=== PATIENT | male | born 1980 | race Caucasian/White ===

== ENCOUNTER 2017-09-14 20:27 | Inpatient (IN) | payer BC ==
[2017-09-14] MEDS ORDERED: Heparin Sodium 5,000 Units/ML Vial IVPUSH ONE (21:18)
[2017-09-14] MEDS ORDERED: Iopamidol 755 Mg/ML 100 ML Bottle IVPUSH ONE (21:20)
[2017-09-14 21:21] LABS: CHLORIDE,CL 103 mmol/L (101-111); SODIUM,NA 139 mmol/L (135-145)
[2017-09-14] MEDS ORDERED: Heparin Sodium/D5W 500 ML ONE (21:30)
[2017-09-14] MEDS ORDERED: Heparin Sodium/D5W 25,000 UNITS/500 ML BAG IV SCH (21:30)
--- NOTE | 2017-09-14 22:06 | EDM.PDOC ---
ED HPI GENERAL MEDICAL PROBLEM - General Chief Complaint: Chest Pain Stated Complaint: CHEST SOB AND LEG PAIN Time Seen by Provider: 09/14/17 20:30 Source of Information: Reports: Patient History Limitations: Reports: No Limitations - History of Present Illness INITIAL COMMENTS - FREE TEXT/NARRATIVE: ED with complaint of right leg pain for one week, increasing chest pain over past since Monday, minimal cough, feeling wheezy, No hx asthma, No fever. Decrease in activity tolerance. Has been traveling since Monday in car and by airplane. Family hx positive for blood clots. Right Lower Leg Pain Score (Numeric/FACES): 3 Middle Chest Pain Score (Numeric/FACES): 7 - Related Data Allergies Allergy/AdvReac Type Severity Reaction Status Date / Time No Known Allergies Allergy Verified 09/15/17 00:08 Home Meds: Home Meds . [No Known Home Meds] 09/14/17 [History] ED ROS GENERAL - Review of Systems Review Of Systems: See Below Constitutional: Reports: Fatigue HEENT: Reports: No Symptoms Respiratory: Reports: Shortness of Breath, Wheezing, Pleuritic Chest Pain, Cough. Denies: Hemoptysis Cardiovascular: Reports: Chest Pain, Dyspnea on Exertion, Orthopnea. Denies: Lightheadedness GI/Abdominal: Reports: No Symptoms Musculoskeletal: Reports: Leg Pain Skin: Reports: No Symptoms Neurological: Reports: No Symptoms ED EXAM, GENERAL - Physical Exam Exam: See Below Exam Limited By: No Limitations General Appearance: Alert, No Apparent Distress, Anxious Eye Exam: Bilateral Eye: EOMI Ears: Normal External Exam, Normal Canal Ear Exam: Bilateral Ear: Auricle Normal, Canal Normal, TM normal Nose: Normal Inspection Throat/Mouth: Normal Inspection Head: Atraumatic, Normocephalic Neck: Normal Inspection Respiratory/Chest: Normal Breath Sounds Cardiovascular: Normal Peripheral Pulses, Regular Rate, Rhythm GI/Abdominal: Normal Bowel Sounds, Soft Back Exam: Normal Inspection, Full Range of Motion Extremities: Normal Inspection, Normal Range of Motion, Samira's Sign (right), Leg Pain (right calf) Neurological: Alert, Oriented, Normal Cognition Psychiatric: Normal Affect, Normal Mood Skin Exam: Warm, Dry, Intact, Normal Color Course - Vital Signs Last Recorded V/S: Last Vital Signs Temp 97.7 F 09/14/17 22:53 Pulse 78 09/14/17 22:53 Resp 20 09/14/17 22:53 BP 150/91 H 09/14/17 22:53 Pulse Ox 100 09/14/17 22:53 - Orders/Labs/Meds Orders: Active Orders 24 hr Category Date Time Status Heparin Sodium/D5W [Heparin 25,000 Units in D5W 500 ML] Med 09/14/17 21:30 Active 25,000 units in 500 ml IV TITRATE Medication Orders Heparin Sodium/Dextrose (Heparin 25,000 Units In D5w 500 Ml) 25,000 units in 500 mls @ 32.658 mls/hr IV TITRATE JULIO; 18 UNITS/KG/HR PRN Reason: Protocol Last Admin: 09/14/17 21:53 Dose: 18 units/kg/hr, 32.658 mls/hr Sodium Chloride (Normal Saline) 1,000 mls @ 75 mls/hr IV ASDIRECTED JULIO Ondansetron HCl (Zofran) 4 mg IVPUSH Q6H PRN PRN Reason: Nausea/Vomiting Labs: Laboratory Tests 09/14/17 09/14/17 09/14/17 Range/Units 20:40 20:40 20:40 WBC 10.7 H (5.0-10.0) 10^3/uL RBC 5.62 (4.6-6.2) 10^6/uL Hgb 16.8 (14.0-18.0) g/dL Hct 47.8 (40.0-54.0) % MCV 85.1 (80-100) fL MCH 29.9 (27.0-34.0) pg MCHC 35.1 H (33.0-35.0) g/dL Plt Count 207 (150-450) 10^3/uL Neut % (Auto) 68.6 (42.2-75.2) % Lymph % (Auto) 22.9 (20.5-50.1) % [place] % (Auto) 6.1 (2-8) % Eos % (Auto) 2.2 (1.0-3.0) % Baso % (Auto) 0.2 (0.0-1.0) % PT 10.4 (9.0-12.0) SEC INR 1.0 (0.9-1.2) D-Dimer, Quantitative 2680 H (0-400) ng/mL Sodium 139 (135-145) mmol/L Potassium 3.6 (3.6-5.0) mmol/L Chloride 103 (101-111) mmol/L Carbon Dioxide 27.0 (21.0-31.0) mmol/L Anion Gap 12.6 BUN 13 (7-18) mg/dL Creatinine 0.9 (0.6-1.3) mg/dL Est Cr Clr Drug Dosing 118.29 mL/min Estimated GFR (MDRD) > 60 BUN/Creatinine Ratio 14.44 Glucose 115 H (74-105) mg/dL Calcium 9.2 (8.4-10.2) mg/dl Total Bilirubin 0.8 (0.2-1.0) mg/dL AST 34 (10-42) IU/L ALT 51 (10-60) IU/L Alkaline Phosphatase 101 (42-121) IU/L Troponin I < 0.02 (0.00-0.02) ng/ml Total Protein 7.2 (6.7-8.2) g/dl Albumin 4.4 (3.2-5.5) g/dl Globulin 2.8 Albumin/Globulin Ratio 1.57 Meds: Medications Generic Name Dose Route Start Last Admin Trade Name Freq PRN Reason Stop Dose Admin Heparin Sodium/Dextrose 25,000 units in 500 mls @ 32.658 mls/hr 09/14/17 21: 30 09/14/17 21:53 Heparin 25,000 Units In D5w 500 Ml IV 18 units/kg/hr TITRATE [facility] 32.658 mls/hr Protocol Administration 18 UNITS/KG/HR Sodium Chloride 1,000 mls @ 75 mls/hr 09/14/17 22:45 Normal Saline IV ASDIRECTED [facility] Ondansetron HCl 4 mg 09/14/17 22:32 Zofran IVPUSH Q6H PRN Nausea/Vomiting Discontinued Medications Generic Name Dose Route Start Last Admin Trade Name Freq PRN Reason Stop Dose Admin Heparin Sodium (Porcine) 5,000 units 09/14/17 21:18 09/14/17 21:51 Heparin Sodium IVPUSH 09/14/17 21:19 5,000 units ONETIME ONE Administration Heparin Sodium/Dextrose Confirm 09/14/17 21:30 09/14/17 21:37 Heparin 25,000 Units In D5w 500 Ml Administered 09/14/17 21:31 Not Given Dose 500 mls @ as directed .ROUTE .STK-MED ONE Iopamidol 100 ml 09/14/17 21:20 09/14/17 21:30 Isovue-370 (76%) IVPUSH 09/14/17 21:21 100 ml ONETIME ONE Administration - Radiology Interpretation Free Text/Narrative:: CXR negative CT angio chest Thrombus in right main pulmonary artery as well as segmental branches to the right upper and right lower lobes, as well as segmental and subsegmental branches to the left lower lobe - Re-Assessments/Exams Free Text/Narrative Re-Assessment/Exam: 09/14/17 22:08 Wells Criteria Scoring 7.5. CT angio results pending, Heparin infusing 09/14/17 22:28 Dr Fuchs accepting of patient for admission Departure - Departure Time of Disposition: 22:27 Disposition: Admitted As Inpatient 68 Condition: Good Clinical Impression: Pulmonary embolism Qualifiers: Pulmonary embolism type: other Chronicity: acute Acute cor pulmonale presence: without acute cor pulmonale Qualified Code(s): I26.99 - Other pulmonary embolism without acute cor pulmonale - Discharge Information - My Orders Last 24 Hours: My Active Orders 09/14/17 21:30 Heparin Sodium/D5W [Heparin 25,000 Units in D5W 500 ML] 25,000 units in 500 ml IV TITRATE - Assessment/Plan Last 24 Hours: My Active Orders 09/14/17 21:30 Heparin Sodium/D5W [Heparin 25,000 Units in D5W 500 ML] 25,000 units in 500 ml IV TITRATE
[2017-09-14] MEDS ORDERED: Ondansetron 4 MG/2 ML SDV IVPUSH PRN (22:32)
[2017-09-14] MEDS ORDERED: Sodium Chloride 0.9% 1,000 ML IV SCH (22:45)
--- NOTE | 2017-09-15 11:12 | PCM.HP ---
H&P History of Present Illness - General Date of Service: 09/14/17 Admit Problem/Dx: Admission Diagnosis/Problem Admission Diagnosis/Problem Shortness of breath at rest Source of Information: Patient History Limitations: Reports: No Limitations - History of Present Illness Initial Comments - Free Text/Narative: The patient presented with complaint of right leg pain that has been going on for one week. Gradually worsened and he developed associated shortness of breath.Also started having chest pain at the retrosternal area. The patient denies fever chills, nausea or vomiting. The patient's sister has a history of protein S deficiency and has had blood clots. Patient's mother also has had blood clots. Patient was on a long distance travel. However he started having pain of the right lower extremity before the trip Onset of Symptoms: Reports: Other (one week) Duration of Symptoms: Reports: Getting Worse Quality: Reports: Burning Worsens with: Reports: Movement Associated Symptoms: Reports: Chest Pain, Shortness of Breath Right Lower Leg Pain Score (Numeric/FACES): 1 Middle Chest Pain Score (Numeric/FACES): 7 - Related Data Allergies/Adverse Reactions: Allergies Allergy/AdvReac Type Severity Reaction Status Date / Time No Known Allergies Allergy Verified 09/15/17 00:08 Home Medications: Home Meds . [No Known Home Meds] 09/14/17 [History] Past Medical History - Past Health History Medical/Surgical History: Denies Medical/Surgical History - Infectious Disease History Infectious Disease History: Reports: Chicken Pox, Other (See Below) Other Infectious Disease History: Kriptosparitiam(not sure spelling correct and pt does not know how to spell) Social & Family History - Family History Cardiac: Reports: Heart Failure Respiratory: Reports: Interstitial Lung Disease, PE, Other (See Below) Other Respiratory Family Hisory: in legs, both mother, brother and sister GI: Reports: Cholelithiasis Oncologic: Reports: None - Tobacco Use Smoking Status *Q: Never Smoker Second Hand Smoke Exposure: No - Caffeine Use Caffeine Use: Reports: Soda - Recreational Drug Use Recreational Drug Use: No H&P Review of Systems - Review of Systems: Review Of Systems: See Below General: Reports: No Symptoms HEENT: Reports: No Symptoms Pulmonary: Reports: No Symptoms, Shortness of Breath, Wheezing Gastrointestinal: Reports: No Symptoms Genitourinary: Reports: No Symptoms Musculoskeletal: Reports: No Symptoms Skin: Reports: No Symptoms Psychiatric: Reports: No Symptoms Hematologic/Lymphatic: Reports: No Symptoms Exam - Exam Exam: See Below - Vital Signs Vital Signs: Last Vital Signs Temp 37.1 C 09/15/17 07:00 Pulse 66 09/15/17 07:00 Resp 14 09/15/17 07:00 BP 112/62 09/15/17 07:00 Pulse Ox 96 09/15/17 07:00 Weight: 91.263 kg - Exam General: Alert, Oriented, 4 HEENT: PERRLA, Hearing Intact, Mucosa Moist & [place], Nares Patent, Normal Nasal Septum, Posterior Pharynx Clear, Conjunctiva Clear, EOMI, EACs Clear, TMs Clear Lungs: Clear to Auscultation, Normal Respiratory Effort Cardiovascular: Regular Rate, Regular Rhythm GI/Abdominal Exam: Normal Bowel Sounds, Soft, Non-Tender, No Organomegaly, No Distention, No Abnormal Bruit, No Mass, Pelvis Stable Back Exam: Normal Inspection, Full Range of Motion, NT Extremities: Leg Pain Neuro Extensive - Motor, Sensory, Reflexes: CN II-XII Intact, Normal Gait, Normal Reflexes Psychiatric: Alert, Normal Affect - Patient Data Lab Results Last 24 hrs: Laboratory Results - last 24 hr 09/15/17 09/15/17 Range/Units 03:55 10:03 APTT 65.0 H 80.4 H (22.0-34.0) SEC Result Diagrams: 09/14/17 20:40 09/14/17 20:40 *Q Meaningful Use (ADM) - VTE *Q VTE Criteria *Q: - Stroke *Q Stroke Criteria *Q: - AMI *Q AMI Criteria *Q: Problem List Initiated/Reviewed/Updated: Yes Orders Last 24hrs: Active Orders 24 hr Category Date Time Status Venous Doppler Lwr Ext Bi [US] Routine Exams 09/15/17 10:21 Ordered Enoxaparin [Lovenox] Med 09/15/17 13:00 Ordered 100 mg SUBCUT Q12HR Warfarin Pharmacy to Dose [Pharmacy to Dose - Warfarin] Med 09/15/17 10:45 Ordered 1 dose .XX ASDIRECTED Medication Orders Enoxaparin Sodium (Lovenox) 100 mg SUBCUT Q12HR JULIO Sodium Chloride (Normal Saline) 1,000 mls @ 75 mls/hr IV ASDIRECTED JULIO Last Admin: 09/15/17 04:51 Dose: 75 mls/hr Ondansetron HCl (Zofran) 4 mg IVPUSH Q6H PRN PRN Reason: Nausea/Vomiting Warfarin Sodium (Pharmacy To Dose - Warfarin) 1 dose .XX ASDIRECTED [facility] Assessment/Plan Comment:: #. Acute pulmonary embolism CT scan of the chest showed bilateral pulmonary embolism. Patient has clot in the right pulmonary artery also #. Right lower extremity pain Patient likely has DVT of the right lower extremity. The patient him back on a long distance travel area has a family history of protein S deficiency #. Chest pain This is as a result of acute pulmonary embolism Plan: Admit patient to medical floor Start patient on continuous intravenous heparin weight-based protocol Monitor PTT Supplemental oxygen Obtain echocardiogram We'll obtain ultrasound of right lower extremity Discussed with the emergency room physician it administrative assistant
--- NOTE | 2017-09-15 11:21 | PCM.PN ---
- General Info Date of Service: 09/15/17 Subjective Update: Patient was admitted with acute pulmonary embolism Complains of pain right lower extremity Does have some shortness of breath - Review of Systems General: Reports: No Symptoms Pulmonary: Reports: Shortness of Breath Cardiovascular: Reports: No Symptoms Gastrointestinal: Reports: No Symptoms Musculoskeletal: Reports: Leg Pain - Patient Data Vitals - Most Recent: Last Vital Signs Temp 36.4 C 09/15/17 11:00 Pulse 82 09/15/17 11:00 Resp 14 09/15/17 07:00 BP 148/80 H 09/15/17 11:00 Pulse Ox 95 09/15/17 11:00 Weight - Most Recent: 91.263 kg I&O - Last 24 Hours: Intake & Output 09/14/17 09/15/17 09/15/17 22:59 06:59 14:59 Intake Total 228 125 Output Total 400 400 Balance -172 -275 Lab Results Last 24 Hours: Laboratory Results - last 24 hr 09/15/17 09/15/17 Range/Units 03:55 10:03 APTT 65.0 H 80.4 H (22.0-34.0) SEC Med Orders - Current: Current Medications Enoxaparin Sodium (Lovenox) 100 mg SUBCUT Q12HR JULIO Sodium Chloride (Normal Saline) 1,000 mls @ 75 mls/hr IV ASDIRECTED JULIO Last Admin: 09/15/17 04:51 Dose: 75 mls/hr Ondansetron HCl (Zofran) 4 mg IVPUSH Q6H PRN PRN Reason: Nausea/Vomiting Warfarin Sodium (Pharmacy To Dose - Warfarin) 1 dose .XX ASDIRECTED JULIO Discontinued Medications Heparin Sodium (Porcine) (Heparin Sodium) 5,000 units IVPUSH ONETIME ONE Stop: 09/14/17 21:19 Last Admin: 09/14/17 21:51 Dose: 5,000 units Heparin Sodium/Dextrose (Heparin 25,000 Units In D5w 500 Ml) 25,000 units in 500 mls @ 32.658 mls/hr IV TITRATE JULIO; 18 UNITS/KG/HR PRN Reason: Protocol Last Titration: 09/15/17 10:35 Dose: 16 units/kg/hr, 29.03 mls/hr Heparin Sodium/Dextrose (Heparin 25,000 Units In D5w 500 Ml) Confirm Administered Dose 500 mls @ as directed .ROUTE .STK-MED ONE Stop: 09/14/17 21:31 Last Admin: 09/14/17 21:37 Dose: Not Given Iopamidol (Isovue-370 (76%)) 100 ml IVPUSH ONETIME ONE Stop: 09/14/17 21:21 Last Admin: 09/14/17 21:30 Dose: 100 ml - Exam General: Alert, Cooperative, No Acute Distress Lungs: Clear to Auscultation Cardiovascular: Regular Rate GI/Abdominal Exam: Normal Bowel Sounds, Soft Extremities: Leg Pain - Problem List Review Problem List Initiated/Reviewed/Updated: Yes - My Orders Last 24 Hours: My Active Orders 09/15/17 10:21 Venous Doppler Lwr Ext Bi [US] Routine 09/15/17 10:45 Warfarin Pharmacy to Dose [Pharmacy to Dose - Warfarin] 1 dose .XX ASDIRECTED 09/15/17 13:00 Enoxaparin [Lovenox] 100 mg SUBCUT Q12HR - Plan Plan:: #. Acute pulmonary embolism CT scan of the chest showed bilateral pulmonary embolism. Patient has clot in the right pulmonary artery also #. Right lower extremity pain Patient likely has DVT of the right lower extremity. The patient him back on a long distance travel area has a family history of protein S deficiency #. Chest pain This is as a result of acute pulmonary embolism Plan: Discontinue continuous intravenous heparin Start patient on Lovenox 100 mg every 12 hours Start patient on Coumadin Monitor PT and INR Obtain ultrasound of the lower extremities Obtain echocardiogram
[2017-09-15] MEDS ORDERED: Morphine 2 MG/ML Syringe IVPUSH ONE (12:44)
[2017-09-15] MEDS ORDERED: Enoxaparin 100 MG/1 ML Syringe SUBCUT SCH (13:00)
[2017-09-15] MEDS ORDERED: Morphine 2 MG/ML Syringe IVPUSH PRN (13:37)
[2017-09-15] MEDS ORDERED: Warfarin 5 MG Tab PO ONE (14:00)
--- NOTE | 2017-09-15 15:31 | US ---
Clinical history: 37-year-old male "pulmonary embolism". Rule out occult lower extremity DVT. Interpretation: Negative exam. No sign of intraluminal echogenic thrombus and normal compressibility deep veins both groin, thigh, k nee and calves. Spontaneous flow in the posterior tibial and anterior tibial veins both lower extremi ties. Augmented flow in the popliteal vein behind the knees and femoral veins both thighs. No Gomez's cyst. CONCLUSION: No current sonographic evidence deep vein thrombosis either lower extremity i.e. negative exam.
[2017-09-15] MEDS: Enoxaparin 100 MG/1 ML Syringe SUBCUT SCH (17:01)
[2017-09-15] MEDS ORDERED: Acetaminophen 325 MG Tab PO PRN (17:52)
--- NOTE | 2017-09-15 20:00 | EKG ---
09/15/2017 - LYNN VINCENT - TIME: 2022. EKG shows normal sinus rhythm with a rate of 74 per minute. Nonspecific T-wave abnormalities. [facility] /[id number]
[2017-09-16] MEDS: Enoxaparin 100 MG/1 ML Syringe SUBCUT SCH (05:48)
--- NOTE | 2017-09-16 09:42 | PCM.DCSUM1 ---
Discharge Summary - Hospital Course Free Text/Narrative:: The patient presented with complaint of chest pain and shortness of breath which was going on for one week. He had a CT scan of the chest which showed bilateral pulmonary embolism. There were clots in the right pulmonary artery. We proceeded to obtain ultrasound of the extremities there was no evidence of clots. Patient's sister has history of protein S deficiency. The patient should be tested as outpatient for hypercoagulable conditions. The test should be done includes protein C and S deficiency as a, factor V Leiden deficiency, prothrombin complex, lupus anticoagulant ect The patient has been started on subcutaneous Lovenox and Coumadin. He will have PT and INR checked in 3 days I will follow up with primary care provider in one week #. Acute pulmonary embolism CT scan of the chest showed bilateral pulmonary embolism. Patient has clot in the right pulmonary artery also #. Right lower extremity pain Patient likely has DVT of the right lower extremity. The patient him back on a long distance travel area has a family history of protein S deficiency #. Chest pain This is as a result of acute pulmonary embolism - Discharge Data Discharge Date: 09/16/17 Discharge Disposition: Home, Self-Care 01 Condition: Stable - Patient Instructions Diet: Regular Diet as Tolerated Activity: As Tolerated Driving: May Drive Today Showering/Bathing: October Shower - Discharge Plan Prescriptions/Med Rec: Enoxaparin [Lovenox] 100 mg SUBCUT Q12H 5 Days #10 syringe Warfarin Sodium [Coumadin] 6 mg PO DAILY #20 tablet Home Medications: Home Meds Acetaminophen [Tylenol] 650 mg PO Q6H PRN tablet 09/16/17 [Rx] Enoxaparin [Lovenox] 100 mg SUBCUT Q12H 5 Days #10 syringe 09/16/17 [Rx] Warfarin Sodium [Coumadin] 6 mg PO DAILY #20 tablet 09/16/17 [Rx] Patient Handouts: What You Need to Know About Warfarin, Vascular Ultrasound, Enoxaparin injection Referrals: PCP,Unobtain [Ordering Only Provider] - - General Info Admission Dx/Problem (Free Text: Admission Diagnosis/Problem Admission Diagnosis/Problem Shortness of breath at rest - Review of Systems General: Reports: No Symptoms Pulmonary: Reports: Shortness of Breath Cardiovascular: Reports: No Symptoms Gastrointestinal: Reports: No Symptoms Genitourinary: Reports: No Symptoms Skin: Reports: No Symptoms - Patient Data Vitals - Most Recent: Last Vital Signs Temp 36.7 C 09/16/17 07:00 Pulse 69 09/16/17 07:00 Resp 18 09/16/17 07:00 BP 115/65 09/16/17 07:00 Pulse Ox 95 09/16/17 07:00 Weight - Most Recent: 91.263 kg I&O - Last 24 hours: Intake & Output 09/15/17 09/16/17 09/16/17 22:59 06:59 14:59 Intake Total 920 400 Output Total 500 900 Balance 420 -500 Lab Results - Last 24 hrs: Laboratory Results - last 24 hr 09/15/17 09/15/17 Range/Units 10:03 13:00 APTT 80.4 H (22.0-34.0) SEC Troponin I < 0.02 (0.00-0.02) ng/ml Med Orders - Current: Current Medications Acetaminophen (Tylenol) 650 mg PO Q6H PRN PRN Reason: Pain Last Admin: 09/15/17 18:12 Dose: 650 mg Enoxaparin Sodium (Lovenox) 100 mg SUBCUT Q12H JULIO Last Admin: 09/16/17 05:48 Dose: 100 mg Morphine Sulfate (Morphine) 2 mg IVPUSH Q4H PRN PRN Reason: Pain Ondansetron HCl (Zofran) 4 mg IVPUSH Q6H PRN PRN Reason: Nausea/Vomiting Warfarin Sodium (Pharmacy To Dose - Warfarin) 1 dose .XX ASDIRECTED JULIO Discontinued Medications Heparin Sodium (Porcine) (Heparin Sodium) 5,000 units IVPUSH ONETIME ONE Stop: 09/14/17 21:19 Last Admin: 09/14/17 21:51 Dose: 5,000 units Heparin Sodium/Dextrose (Heparin 25,000 Units In D5w 500 Ml) 25,000 units in 500 mls @ 32.658 mls/hr IV TITRATE JULIO; 18 UNITS/KG/HR PRN Reason: Protocol Last Titration: 09/15/17 10:35 Dose: 16 units/kg/hr, 29.03 mls/hr Heparin Sodium/Dextrose (Heparin 25,000 Units In D5w 500 Ml) Confirm Administered Dose 500 mls @ as directed .ROUTE .STK-MED ONE Stop: 09/14/17 21:31 Last Admin: 09/14/17 21:37 Dose: Not Given Sodium Chloride (Normal Saline) 1,000 mls @ 75 mls/hr IV ASDIRECTED JULIO Last Admin: 09/15/17 04:51 Dose: 75 mls/hr Iopamidol (Isovue-370 (76%)) 100 ml IVPUSH ONETIME ONE Stop: 09/14/17 21:21 Last Admin: 09/14/17 21:30 Dose: 100 ml Morphine Sulfate (Morphine) 2 mg IVPUSH ONETIME ONE Stop: 09/15/17 12:45 Last Admin: 09/15/17 12:49 Dose: 2 mg Warfarin Sodium (Coumadin) 10 mg PO ONETIME ONE Stop: 09/15/17 14:01 Last Admin: 09/15/17 13:54 Dose: 10 mg *Q Meaningful Use (DIS) - VTE *Q VTE Criteria *Q: - Stroke *Q Stroke Criteria *Q: - AMI *Q AMI Criteria *Q:
[2017-09-16] MEDS ORDERED: Warfarin 5 MG Tab PO ONE (11:15)
== END 2017-09-16 13:00 | disposition home or self-care (01) | DRG 134 ==
LOC: DL.ED 20:27 → DL.MS 22:32
PROVIDERS: ADMIT Hospitalist; ATTEND Hospitalist
DX: I26.99 Other pulmonary embolism without acute cor pulmonale (principal); I82.401 Acute embolism and thrombosis of unspecified deep veins of right lower extremity
CPT/HCPCS: 36415; 71046; 71260; 80053; 84484; 85025; 85379; 85610; 85730; 93005; 93970; 96365; 96375; 99285; A9270-GY; J1644; J1650; J2270; J7030; Q9967

== ENCOUNTER 2017-09-20 07:10 | Emergency (ER) | payer BC ==
[2017-09-20] MEDS ORDERED: Morphine 2 MG/ML Syringe IVPUSH ONE ×2 (07:23→08:29)
--- NOTE | 2017-09-20 07:27 | EDM.PDOC ---
ED HPI GENERAL MEDICAL PROBLEM - General Stated Complaint: [id number] BLOOD CLOT IN LUNG CHEST PAIN Time Seen by Provider: 09/20/17 07:20 Source of Information: Reports: Patient, Old Records, RN, RN Notes Reviewed History Limitations: Reports: No Limitations - History of Present Illness INITIAL COMMENTS - FREE TEXT/NARRATIVE: Toby is a 37 yo male who presents to the ED due to shortness of breath. He relates that he was diagnosed with a PE and was discharged last . He relates that he started experiencing shortness of breath on 09/09/17 after he he returned from vacation in which he was in the car for a prolonged period of time. He relates that 15 minutes ago he woke up with severe pain to the left side of his chest, increased shortness of breath, nausea, and diaphoresis. He describes the pain as sharp stabbing pain to his left chest. Denies radiation. He reports that he has continued his blood thinners since hospital discharge including lovenox and Coumadin. He has a family hx of clotting disorders. Denies fever or abd pain. Onset: Today Onset Time: 07:00 Duration: Minutes: Location: Reports: Chest Quality: Reports: Sharp, Stabbing Severity: Severe Improves with: Reports: Medication Worsens with: Reports: Movement Associated Symptoms: Reports: Chest Pain, Shortness of Breath Left Upper Chest Pain Score (Numeric/FACES): 10 - Related Data Allergies Allergy/AdvReac Type Severity Reaction Status Date / Time No Known Allergies Allergy Verified 09/15/17 00:08 Home Meds: Home Meds Acetaminophen [Tylenol] 650 mg PO Q6H PRN tablet 09/16/17 [Rx] Enoxaparin [Lovenox] 100 mg SUBCUT Q12H 5 Days #10 syringe 09/16/17 [Rx] Warfarin Sodium [Coumadin] 6 mg PO DAILY #20 tablet 09/16/17 [Rx] Past Medical History - Past Health History Medical/Surgical History: Denies Medical/Surgical History - Infectious Disease History Infectious Disease History: Reports: Chicken Pox, Other (See Below) Other Infectious Disease History: Kriptosparitiam(not sure spelling correct and pt does not know how to spell) Social & Family History - Family History Cardiac: Reports: Heart Failure Respiratory: Reports: Interstitial Lung Disease, PE, Other (See Below) Other Respiratory Family Hisory: in legs, both mother, brother and sister GI: Reports: Cholelithiasis Oncologic: Reports: None - Tobacco Use Smoking Status *Q: Never Smoker Second Hand Smoke Exposure: No - Caffeine Use Caffeine Use: Reports: Soda - Recreational Drug Use Recreational Drug Use: No ED ROS GENERAL - Review of Systems Review Of Systems: ROS reveals no pertinent complaints other than HPI. ED EXAM, GENERAL - Physical Exam Exam: See Below Exam Limited By: No Limitations General Appearance: Alert, Severe Distress (He appears to be having significant pain on assessment. Unable to get comfortable on the cart due to pain and shortness of breath) Eye Exam: Bilateral Eye: PERRL Ears: Normal External Exam, Normal Canal, Hearing Grossly Normal, Normal TMs Ear Exam: Bilateral Ear: Auricle Normal, Canal Normal, TM normal Nose: Normal Inspection, Normal Mucosa, No Blood Throat/Mouth: Normal Inspection, Normal Lips, Normal Teeth, Normal Gums, Normal Oropharynx, Normal Voice, No Airway Compromise Head: Atraumatic, Normocephalic Neck: Normal Inspection, Supple, Non-Tender, Full Range of Motion Respiratory/Chest: Lungs Clear, No Accessory Muscle Use, Decreased Breath Sounds , Other (Patient reports pain to left side of chest.) Cardiovascular: Normal Peripheral Pulses, Regular Rate, Rhythm, No Edema, No Gallop, No JVD, No Murmur, No Rub GI/Abdominal: Normal Bowel Sounds, Soft, Non-Tender, No Organomegaly, No Distention, No Abnormal Bruit, No Mass (Male) Exam: Deferred Rectal (Males) Exam: Deferred Back Exam: Normal Inspection, Full Range of Motion, NT Extremities: Normal Inspection, Normal Range of Motion, Non-Tender, Normal Capillary Refill, No Pedal Edema Neurological: Alert, Oriented, CN II-XII Intact, Normal Cognition, Normal Gait, Normal Reflexes, No Motor/Sensory Deficits Psychiatric: Normal Affect, Normal Mood Skin Exam: Warm, Intact, Normal Color, No Rash, Diaphoretic Lymphatic: No Adenopathy EKG INTERPRETATION EKG Date: 09/20/17 Time: 07:18 Rhythm: NSR [place]: Normal P-Wave: Present QRS: Normal ST-T: Normal QT: Normal Comparison: No Change Course - Vital Signs Last Recorded V/S: Last Vital Signs Temp 98.8 F 09/20/17 07:31 Pulse 74 09/20/17 07:50 Resp 20 09/20/17 07:50 BP 124/88 09/20/17 07:50 Pulse Ox 98 09/20/17 07:50 - Orders/Labs/Meds Orders: Active Orders 24 hr Category Date Time Status EKG Documentation Completion [RC] URGENT Care 09/20/17 07:16 Active Chest w Cont [CT] Urgent Exams 09/20/17 07:59 Taken Labs: Laboratory Tests 09/20/17 09/20/17 09/20/17 Range/Units 07:29 07:29 07:29 WBC 8.8 (5.0-10.0) 10^3/uL RBC 5.67 (4.6-6.2) 10^6/uL Hgb 16.9 (14.0-18.0) g/dL Hct 48.6 (40.0-54.0) % MCV 85.7 (80-100) fL MCH 29.8 (27.0-34.0) pg MCHC 34.8 (33.0-35.0) g/dL Plt Count 268 (150-450) 10^3/uL Neut % (Auto) 64.2 (42.2-75.2) % Lymph % (Auto) 21.9 (20.5-50.1) % [place] % (Auto) 10.3 H (2-8) % Eos % (Auto) 3.1 H (1.0-3.0) % Baso % (Auto) 0.5 (0.0-1.0) % PT 17.3 H D (9.0-12.0) SEC INR 1.7 H (0.9-1.2) D-Dimer, Quantitative 1460 H (0-400) ng/mL Sodium 138 (135-145) mmol/L Potassium 4.1 (3.6-5.0) mmol/L Chloride 100 L (101-111) mmol/L Carbon Dioxide 28.0 (21.0-31.0) mmol/L Anion Gap 14.1 BUN 12 (7-18) mg/dL Creatinine 1.0 (0.6-1.3) mg/dL Est Cr Clr Drug Dosing 106.46 mL/min Estimated GFR (MDRD) > 60 BUN/Creatinine Ratio 12.00 Glucose 108 H (74-105) mg/dL Calcium 9.3 (8.4-10.2) mg/dl Total Bilirubin 0.9 (0.2-1.0) mg/dL AST 73 H (10-42) IU/L ALT 216 H (10-60) IU/L Alkaline Phosphatase 179 H (42-121) IU/L Troponin I < 0.02 (0.00-0.02) ng/ml Total Protein 7.9 (6.7-8.2) g/dl Albumin 4.3 (3.2-5.5) g/dl Globulin 3.6 Albumin/Globulin Ratio 1.19 Meds: Medications Discontinued Medications Generic Name Dose Route Start Last Admin Trade Name Freq PRN Reason Stop Dose Admin Enoxaparin Sodium 100 mg 09/20/17 09:13 Lovenox SUBCUT 09/20/17 09:14 ONETIME ONE Iopamidol 100 ml 09/20/17 07:59 09/20/17 08:34 Isovue-370 (76%) IVPUSH 09/20/17 08:00 75 ml ONETIME ONE Administration Morphine Sulfate 2 mg 09/20/17 07:23 09/20/17 07:29 Morphine IVPUSH 09/20/17 07:24 2 mg ONETIME ONE Administration Morphine Sulfate 2 mg 09/20/17 08:29 09/20/17 08:33 Morphine IVPUSH 09/20/17 08:30 2 mg ONETIME ONE Administration Ondansetron HCl 4 mg 09/20/17 07:34 09/20/17 07:40 Zofran IV 09/20/17 07:35 4 mg ONETIME ONE Administration Departure - Departure Time of Disposition: 09:15 Disposition: DC/Tfer to Acute Hospital 02 Clinical Impression: Pulmonary embolism Qualifiers: Pulmonary embolism type: other Chronicity: acute Acute cor pulmonale presence: without acute cor pulmonale Qualified Code(s): I26.99 - Other pulmonary embolism without acute cor pulmonale - Discharge Information Forms: Interfacility Transfer EMTALA
[2017-09-20] MEDS ORDERED: Ondansetron 4 MG/2 ML SDV IV ONE (07:34)
[2017-09-20 07:52] LABS: CHLORIDE,CL 100 mmol/L (101-111); SODIUM,NA 138 mmol/L (135-145)
[2017-09-20] MEDS ORDERED: Iopamidol 755 Mg/ML 100 ML Bottle IVPUSH ONE (07:59)
[2017-09-20] MEDS ORDERED: Enoxaparin 100 MG/1 ML Syringe SUBCUT ONE (09:13)
--- NOTE | 2017-09-20 11:35 | CT ---
CLINICAL HISTORY: 37-year-old 206 pound male with severe substernal chest pain, left of midline, and abnormally elevated serum D dimer (1460) who, significantly, was reported one week ago to have "exten sive, bilateral pulmonary artery thrombosis (PE)" that was subsequently treated with heparin, Lovenox and now Coumadin. Reevaluate please. SCAN TECHNIQUE: Volume acquisition of data from an emergency unenhanced CT scan of the chest (bony th orax, lungs and mediastinum) obtained while this patient was lying supine on the Siemens multislice C T scanner [place], [place]. All data archived in the PAC system for st orage, reformatting axial/sagittal/coronal planes and study. INTERPRETATION: Abnormal. 1. Interval resolution, i.e., clearing of the extensive intraluminal thrombosis causing filling defec ts in the pulmonary artery circulation of both lungs demonstrated on the [address] exam. 2. *Patchy round new peripheral pleural-based infiltrates or infarcts anterior segment RLL and lingul ar segment KRISTIN today. 3. *Bibasilar accumulation small dependent new subpulmonic pleural effusions (R>L). Underlying atelec tasis posteriorly RLL. 4. Normal cardiac silhouette. No pericardial effusion, cephalization of flow or signs of alveolar katelyn ma. 5. No parenchymal lung mass lesion or hilar/mediastinal lymphadenopathy. No lobar pneumonia. 6. Normal caliber thoracic aorta without sign of aneurysm or dissection. Normal dorsal spine.
--- NOTE | 2017-09-20 16:15 | EKG ---
09/20/2017 - LYNN VINCENT - TIME: 07:18 a.m. EKG shows normal sinus rhythm, rate of 72 per minute. Nonspecific T-wave abnormalities in inferior leads. [facility] /[id number]
== END 2017-09-20 09:40 ==
LOC: DL.ED 07:10
DX: I26.99 Other pulmonary embolism without acute cor pulmonale (principal); Z79.01 Long term (current) use of anticoagulants
CPT/HCPCS: 36415; 71260; 80053; 84484; 85025; 85379; 85610; 93005; 96372; 96374; 96375; 96376; 99285; J1650; J2270; J2405; Q9967

== ENCOUNTER 2018-08-01 18:06 | Emergency (ER) | payer BC ==
--- NOTE | 2018-08-01 18:25 | EDM.PDOC ---
Scribed by Elena Vaca 08/01/18 1821 for aLst Pappas MD <Last Pappas - Last Filed: 08/01/18 18:41> ED HPI GENERAL MEDICAL PROBLEM - General Chief Complaint: Chest Pain Stated Complaint: CHEST PAIN Time Seen by Provider: 08/01/18 18:10 Source of Information: Reports: Patient, Old Records, RN, RN Notes Reviewed History Limitations: Reports: No Limitations - History of Present Illness INITIAL COMMENTS - FREE TEXT/NARRATIVE: Patient presents to ER by POV with complaint of chest pain. He admits to shortness of breath. Patient has history of pulmonary embolism in August 2017. He was recently discontinued on his anticoagulants. There is a history of clotting disorder in sibling, parent and grandparent. Admits to some cough. Denies palpitations or edema. Onset: Today Duration: Constant Location: Reports: Chest Quality: Reports: Same as Previous Episode Severity: Moderate Improves with: Reports: None Worsens with: Reports: None Associated Symptoms: Reports: No Other Symptoms - Related Data Allergies Allergy/AdvReac Type Severity Reaction Status Date / Time No Known Allergies Allergy Verified 08/01/18 18:35 Home Meds: Home Meds Acetaminophen [Tylenol] 650 mg PO Q6H PRN tablet 09/16/17 [Rx] Past Medical History - Past Health History Medical/Surgical History: Denies Medical/Surgical History Cardiovascular History: Reports: Blood Clots/VTE/DVT Respiratory History: Reports: PE - Infectious Disease History Infectious Disease History: Reports: Chicken Pox, Other (See Below) Other Infectious Disease History: Kriptosparitiam(not sure spelling correct and pt does not know how to spell) Social & Family History - Family History Cardiac: Reports: Heart Failure Respiratory: Reports: Interstitial Lung Disease, PE, Other (See Below) Other Respiratory Family Hisory: in legs, both mother, brother and sister GI: Reports: Cholelithiasis Oncologic: Reports: None - Tobacco Use Smoking Status *Q: Never Smoker - Caffeine Use Caffeine Use: Reports: Soda - Living Situation & Occupation Living situation: Reports: with Family ED ROS GENERAL - Review of Systems Review Of Systems: ROS reveals no pertinent complaints other than HPI. ED EXAM, GENERAL - Physical Exam Exam: See Below Exam Limited By: No Limitations General Appearance: Alert, WD/WN, No Apparent Distress Nose: Normal Inspection, Normal Mucosa, No Blood Throat/Mouth: Normal Inspection, Normal Lips, Normal Teeth, Normal Gums, Normal Oropharynx, Normal Voice, No Airway Compromise Head: Atraumatic, Normocephalic Neck: Normal Inspection, Supple, Non-Tender, Full Range of Motion Respiratory/Chest: No Respiratory Distress, Lungs Clear, Normal Breath Sounds, No Accessory Muscle Use, Chest Non-Tender Cardiovascular: Regular Rate, Rhythm, No Edema GI/Abdominal: Normal Bowel Sounds, Soft, Non-Tender (Male) Exam: Deferred Rectal (Males) Exam: Deferred Back Exam: Normal Inspection Extremities: Normal Inspection, Normal Range of Motion, Non-Tender, No Pedal Edema. No: Joint Swelling, Samira's Sign, Increased Warmth, Redness Neurological: Alert, Oriented, No Motor/Sensory Deficits Psychiatric: Normal Mood Skin Exam: Warm, Dry, Intact, Normal Color, No Rash EKG INTERPRETATION EKG Date: 08/01/18 Time: 18:21 Rhythm: Other (SR) Rate (Beats/Min): 66 [place]: Normal P-Wave: Present QRS: Other (inferior Q waves) ST-T: Normal QT: Normal EKG Interpretation Comments: S1, P2, T3 pattern Course - Vital Signs Last Recorded V/S: Last Vital Signs Temp 98 F 08/01/18 18:08 Pulse 67 08/01/18 18:08 Resp 22 H 08/01/18 18:08 BP 149/77 H 08/01/18 18:08 Pulse Ox 97 08/01/18 18:08 - Orders/Labs/Meds Orders: Active Orders 24 hr Category Date Time Status EKG 12 Lead [EKG Documentation Completion] [RC] STAT Care 08/01/18 18:27 Active Labs: Laboratory Tests 08/01/18 08/01/18 08/01/18 Range/Units 18:31 18:31 18:31 WBC 8.7 (5.0-10.0) 10^3/uL RBC 5.27 (4.6-6.2) 10^6/uL Hgb 15.9 (14.0-18.0) g/dL Hct 44.9 (40.0-54.0) % MCV 85.2 (80-100) fL MCH 30.2 (27.0-34.0) pg MCHC 35.4 H (33.0-35.0) g/dL Plt Count 219 (150-450) 10^3/uL Neut % (Auto) 66.6 (42.2-75.2) % Lymph % (Auto) 24.9 (20.5-50.1) % [place] % (Auto) 6.0 (2-8) % Eos % (Auto) 2.2 (1.0-3.0) % Baso % (Auto) 0.3 (0.0-1.0) % PT 10.2 (9.0-12.0) SEC INR 1.0 (0.9-1.2) APTT 23.0 (22.0-34.0) SEC Sodium 138 (135-145) mmol/L Potassium 3.8 (3.6-5.0) mmol/L Chloride 103 (101-111) mmol/L Carbon Dioxide 27.0 (21.0-31.0) mmol/L Anion Gap 11.8 BUN 15 (7-18) mg/dL Creatinine 0.9 (0.6-1.3) mg/dL Est Cr Clr Drug Dosing 117.16 mL/min Estimated GFR (MDRD) > 60 BUN/Creatinine Ratio 16.66 Glucose 122 H (74-105) mg/dL Calcium 9.3 (8.4-10.2) mg/dl Total Bilirubin 0.8 (0.2-1.0) mg/dL AST 35 (10-42) IU/L ALT 52 (10-60) IU/L Alkaline Phosphatase 81 (42-121) IU/L Troponin I < 0.02 (0.00-0.02) ng/ml Total Protein 7.6 (6.7-8.2) g/dl Albumin 4.4 (3.2-5.5) g/dl Globulin 3.2 Albumin/Globulin Ratio 1.38 Lipase 34 (22-51) U/L Meds: Medications Discontinued Medications Generic Name Dose Route Start Last Admin Trade Name Freq PRN Reason Stop Dose Admin Sodium Chloride 1,000 mls @ 999 mls/hr 08/01/18 19:38 08/01/18 19:40 Normal Saline IV 08/01/18 20:38 999 mls/hr .BOLUS ONE Administration Iopamidol 100 ml 08/01/18 18:34 08/01/18 19:41 Isovue-370 (76%) IVPUSH 08/01/18 18:35 73 ml ONETIME ONE Administration - Re-Assessments/Exams Free Text/Narrative Re-Assessment/Exam: 08/01/18 19:00 Care of pt transferred to [employer] at shift change with CT PE study pending. Departure - Departure Disposition: Home, Self-Care 01 Clinical Impression: Nonspecific chest pain Instructions: Nonspecific Chest Pain, [id number] Referrals: Naomi Laboy MD [Primary Care Provider] - Forms: ED Department Discharge Additional Instructions: Follow up with your primary care facility Return to the ER if symptoms worsen. <LockettSusan - Last Filed: 08/02/18 01:56> ED ROS GENERAL - Review of Systems Review Of Systems: ROS reveals no pertinent complaints other than HPI. Course - Radiology Interpretation Free Text/Narrative:: Chest CT with contrast: FINDINGS: Lungs: There is dependent bibasilar atelectasis. No focal consolidation Pleural space: Normal. No pneumothorax. No pleural effusion. Heart: Normal. No cardiomegaly. No pericardial effusion. Aorta: Normal. No aortic aneurysm. Lymph nodes: Unremarkable. No enlarged lymph nodes. Bones/joints: Unremarkable. No acute fracture. Soft tissues: Unremarkable. IMPRESSION: No acute pulmonary embolism. Note study is technically limited as the lung apices are not included on field- of-view. Thank you for allowing us to participate in the care of your patient. Dictated and Authenticated by: Konstantin Craft MD 08/01/2018 7:54 PM Central Time ([place] & [place]) See rad report - Re-Assessments/Exams Free Text/Narrative Re-Assessment/Exam: 08/01/18 20:09 Patient care taken over from Dr. Pappas, awaiting PE study. PE study results negative. Patient sates he is not SOB. He states he was shoveling prior to the feeling in the left chest and was breathing in cold air. He states he feels the pain more so when he coughs. Patient is informed of the findings. It is recommended he follow up with his primary care facility. Patient agrees and states understanding. 08/01/18 20:10 Departure - Departure Time of Disposition: 20:30 Condition: Fair I have read and agree with the documentation that has been completed regarding this visit. By signing this record, I attest that the documentation was completed in my physical presence and is an accurate record of the encounter.
[2018-08-01] MEDS ORDERED: Iopamidol 755 Mg/ML 100 ML Bottle IVPUSH ONE (18:34)
[2018-08-01 19:02] LABS: ANION GAP 11.8; CHLORIDE,CL 103 mmol/L (101-111); SODIUM,NA 138 mmol/L (135-145)
[2018-08-01] MEDS ORDERED: Sodium Chloride 0.9% 1,000 ML IV ONE (19:38)
== END 2018-08-01 20:44 | disposition home or self-care (01) ==
LOC: DL.ED 18:06
DX: R07.89 Other chest pain (principal)
CPT/HCPCS: 36415; 71260; 80053; 83690; 84484; 85025; 85610; 85730; 93005; 99285; J7030; Q9967